=== PATIENT | female | born 1970 | race Caucasian/White ===

== ENCOUNTER → 2020-02-04 | Outpatient (CLI) | payer OTHER ==
[~2020-02-04] MED LIST: MULTI VITAMINS1 TAB PO; PRINIVIL20 MG PO; PROBIOTIC BLEN1 EACH PO; TOPROL XL 50MG50 MG PO; ULTRAM 50MG TAB50 MG PO; VITAMIN D31000 I1 PO
== END ==
LOC: MC.RAD 01-26 11:45
DX: Z12.31 Encounter for screening mammogram for malignant neoplasm of breast (principal)

== ENCOUNTER → 2020-10-13 | Outpatient (CLI) | payer OTHER | LOC: COL.RAD 13:54 | DX: N93.9 Abnormal uterine and vaginal bleeding, unspecified (principal) ==

== ENCOUNTER → 2021-02-13 | Outpatient (CLI) | payer OTHER | LOC: MC.RAD 12:00 | DX: Z12.31 Encounter for screening mammogram for malignant neoplasm of breast (principal) ==

== ENCOUNTER → 2022-02-27 | Outpatient (CLI) | payer OTHER | LOC: MC.RAD 10:55 | DX: Z12.31 Encounter for screening mammogram for malignant neoplasm of breast (principal) ==

== ENCOUNTER 2023-08-28 10:45 | Outpatient (RCR) | payer OTHER | END 2023-09-08 | disposition home or self-care (01) | LOC: PT.GENESIS | DX: M54.31 Sciatica, right side (principal) ==

== ENCOUNTER → 2024-03-30 | Outpatient (CLI) | payer OTHER ==
[~2024-03-30] MED LIST changes: +FLEXERIL 1010 MG/TAB PO
== END ==
LOC: MC.RAD 11:20
DX: Z12.31 Encounter for screening mammogram for malignant neoplasm of breast (principal)